=== PATIENT | female | born 1985 | race Caucasian/White ===

== ENCOUNTER 2016-08-04 23:37 | Emergency (ER) | payer OTHER ==
[~2016-08-04] VITALS: Ht 172.7 cm; Wt 88.5 kg
[~2016-08-04 23:37] MED LIST: ACETAMINOPHEN-1 EAC1 PO; ANTIVERT25 MG PO; CIPRO500 MG PO; FLAGYL500 MG PO; HYDROCODONE-AP1 EAC6 PO; IBUPROFEN 800800 M1 PO; IRON159 MG; MAGIC MOUTHWASH SWISH&SPIT; MEDROLDOSEPACK PO; NAPROSYN500 MG PO; NOHOMEMEDICATIONS; NORCO 5-325 TA1 EACH PO; PENICILLIN V P500 MG PO; PENICILLIN VK500 M1 PO; PREDNISONE 20 M20 M1 PO; PROAIR HFA8.5 GM INH; ULTRAM 50MG TAB50 MG PO; VENTOLIN HFA 1818 GM INH; ZOFRAN ODT4 MG PO; ZPAK PO
[2016-08-05 00:53] LABS: ABSOLUTE NEUTROPHILS 7.1 thou/uL (1.4-8.2); BASOPHILS 0.6 % (0.0-2.0); EOSINOPHILS 0.9 % (0.0-3.0); HEMATOCRIT 39.2 % (37.0-47.0); HEMOGLOBIN 13.3 gm/dL (12.0-15.0); LYMPHOCYTES 12.3 % (24.0-44.0); MCH 32.3 pg (26.0-34.0); MONOCYTES 11.3 % (1.0-8.0); PLATELET COUNT 182 thou/uL (150-400); POLYS 74.9 % (36.0-66.0); RBC 4.12 mil/uL (4.20-5.00); RDW 13.1 % (10.5-14.5); WBC 9.5 thou/uL (4.0-11.0)
[2016-08-05 00:58] LABS: MANUAL DIFF NO
[2016-08-05 01:04] LABS: CALCIUM 8.6 mg/dL (8.5-10.1); CREATININE 0.8 mg/dL (0.6-1.0); POTASSIUM 3.4 mmol/L (3.5-5.1)
[2016-08-05 01:07] LABS: URINE BILIRUBIN NEGATIVE (Negative); URINE BLOOD 3+ (Negative); URINE COLOR YELLOW; URINE GLUCOSE-RANDOM* NEGATIVE (Negative); URINE KETONES NEGATIVE (Negative); URINE NITRITE POSITIVE (Negative); URINE PROTEIN (DIPSTICK) 2+ (Negative); URINE SPECIFIC GRAVITY 1.025 (1.003-1.035); URINE UROBILINOGEN 0.2 E.U./dl (0.2-1.0)
[2016-08-05 01:19] LABS: CASTS None Seen /LPF (None Seen); CRYSTALS None Seen /LPF (None Seen); SQUAMOUS 0-3 Few /LPF (0-3); URINE RBC 3-10 Few /HPF (0-2); URINE WBC >25 Many /HPF (0-5)
[2016-08-05] MEDS ORDERED: NORCO 5-325 TA1 EACH PO (03:42)
[2016-08-05] MEDS ORDERED: ZOFRAN4 MG PO (03:42)
[2016-08-05] MEDS ORDERED: IBUPROFEN 600600 M1 PO (03:42)
[2016-08-05] MEDS ORDERED: BACTRIM DS TAB1 EACH PO (03:42)
[2016-08-05] MEDS ORDERED: SENOKOT-S1 TA1 PO (03:42)
== END 2016-08-05 03:44 | disposition home or self-care (01) ==
LOC: ER 23:37
PROVIDERS: Emergency Medicine; Physician Assistant
DX: N12 Tubulo-interstitial nephritis, not specified as acute or chronic (principal); F10.99 Alcohol use, unspecified with unspecified alcohol-induced disorder; Z86.2 Personal history of diseases of the blood and blood-forming organs and certain disorders involving the immune mechanism; Z88.6 Allergy status to analgesic agent; Z88.8 Allergy status to other drugs, medicaments and biological substances

== ENCOUNTER 2016-08-07 23:33 | Inpatient (IN) | payer OTHER ==
[~2016-08-07] VITALS: Ht 172.7 cm; Wt 88.0 kg
[~2016-08-07 23:33] MED LIST changes: +BACTRIM DS TAB1 EACH PO; +IBUPROFEN 600600 M1 PO; +SENOKOT-S1 TA1 PO; +ZOFRAN4 MG PO
[2016-08-07 23:35] VITALS: BP 123/79
[2016-08-08 00:41] LABS: URINE BLOOD TRACE (Negative); URINE COLOR YELLOW; URINE GLUCOSE-RANDOM* NEGATIVE (Negative); URINE KETONES TRACE (Negative); URINE LEUKOCYTES-REFLEX 1+ (Negative); URINE PROTEIN (DIPSTICK) TRACE (Negative); URINE SPECIFIC GRAVITY >= 1.030 (1.003-1.035)
[2016-08-08 00:42] LABS: ABSOLUTE NEUTROPHILS 3.6 thou/uL (1.4-8.2); BASOPHILS 0.6 % (0.0-2.0); EOSINOPHILS 4.5 % (0.0-3.0); HEMATOCRIT 35.1 % (37.0-47.0); LYMPHOCYTES 21.1 % (24.0-44.0); MCH 32.4 pg (26.0-34.0); MCHC 34.1 g/dL (28.0-37.0); MCV 95.1 fL (80.0-100.0); MONOCYTES 10.4 % (1.0-8.0); PLATELET COUNT 183 thou/uL (150-400); POLYS 63.4 % (36.0-66.0); RBC 3.69 mil/uL (4.20-5.00); RDW 12.6 % (10.5-14.5); WBC 5.7 thou/uL (4.0-11.0)
[2016-08-08 00:43] LABS: MANUAL DIFF NO
[2016-08-08 00:45] LABS: CALCIUM 8.7 mg/dL (8.5-10.1); CREATININE 0.9 mg/dL (0.6-1.0); POTASSIUM 3.4 mmol/L (3.5-5.1)
[2016-08-08 00:47] LABS: ICTOTEST (BILI CONFIRMATORY) Negative (Negative); URINE BILIRUBIN NEGATIVE (Negative)
[2016-08-08 01:03] LABS: SQUAMOUS >10 Many /LPF (0-3)
[2016-08-08 01:04] LABS: CASTS None Seen /LPF (None Seen); CRYSTALS None Seen /LPF (None Seen); URINE RBC 0-2 Rare /HPF (0-2)
[2016-08-08 02:48] VITALS: BP 117/58
[2016-08-08 03:09] VITALS: BP 127/61
[2016-08-08 06:50] VITALS: BP 99/48
[2016-08-08 14:09] VITALS: BP 93/57
[2016-08-08 19:21] VITALS: BP 116/59
[2016-08-09 03:37] LABS: HEMATOCRIT 32.2 % (37.0-47.0); MCH 32.4 pg (26.0-34.0); MCHC 34.3 g/dL (28.0-37.0); MCV 94.5 fL (80.0-100.0); RBC 3.4 mil/uL (4.20-5.00); RDW 12.7 % (10.5-14.5); WBC 4.4 thou/uL (4.0-11.0)
[2016-08-09 03:45] VITALS: BP 107/66
[2016-08-09 03:46] LABS: CALCIUM 7.9 mg/dL (8.5-10.1); CREATININE 0.8 mg/dL (0.6-1.0); POTASSIUM 3.9 mmol/L (3.5-5.1)
[2016-08-09 09:09] VITALS: BP 107/68
[2016-08-09] MEDS ORDERED: KEFLEX500 MG PO (11:49)
[2016-08-09 12:29] VITALS: BP 107/68
== END 2016-08-09 13:05 | disposition home or self-care (01) | DRG 690 ==
LOC: ER 23:33 → EROBS 08-08 02:20 → 5S 08-08 02:20
PROVIDERS: Emergency Medicine; Nurse Practitioner Family
DX: N12 Tubulo-interstitial nephritis, not specified as acute or chronic (principal); F17.210 Nicotine dependence, cigarettes, uncomplicated; Z88.6 Allergy status to analgesic agent; Z91.018 Allergy to other foods; Z88.1 Allergy status to other antibiotic agents; Z90.49 Acquired absence of other specified parts of digestive tract
CPT/HCPCS: 10086

== ENCOUNTER 2016-08-11 16:38 | Emergency (ER) | payer OTHER ==
[~2016-08-11] VITALS: Ht 172.7 cm; Wt 88.5 kg
[~2016-08-11 16:38] MED LIST changes: +KEFLEX500 MG PO
[2016-08-11 17:44] LABS: HEMATOCRIT 32.6 % (37.0-47.0); HEMOGLOBIN 11.2 gm/dL (12.0-15.0); MCHC 34.2 g/dL (28.0-37.0); MCV 93.6 fL (80.0-100.0); PLATELET COUNT 153 thou/uL (150-400); RBC 3.49 mil/uL (4.20-5.00); RDW 12.8 % (10.5-14.5); WBC 2.8 thou/uL (4.0-11.0)
[2016-08-11 17:45] LABS: URINE BILIRUBIN NEGATIVE (Negative); URINE BLOOD NEGATIVE (Negative); URINE COLOR YELLOW; URINE GLUCOSE-RANDOM* NEGATIVE (Negative); URINE KETONES NEGATIVE (Negative); URINE LEUKOCYTES-REFLEX 2+ (Negative); URINE PROTEIN (DIPSTICK) NEGATIVE (Negative); URINE SPECIFIC GRAVITY <= 1.005 (1.003-1.035); URINE UROBILINOGEN 0.2 E.U./dl (0.2-1.0)
[2016-08-11 17:45] LABS: MANUAL DIFF YES
[2016-08-11 17:50] LABS: SQUAMOUS 4-10 Moderate /LPF (0-3)
[2016-08-11 17:51] LABS: URINE RBC None Seen /HPF (0-2); URINE WBC-REFLEX 0-5 Rare /HPF (0-5)
[2016-08-11 17:52] LABS: CASTS None Seen /LPF (None Seen); CRYSTALS None Seen /LPF (None Seen)
[2016-08-11 17:52] LABS: CALCIUM 8.1 mg/dL (8.5-10.1); CREATININE 0.8 mg/dL (0.6-1.0); POTASSIUM 3.8 mmol/L (3.5-5.1)
[2016-08-11 17:57] LABS: ALBUMIN 2.8 g/dL (3.4-5.0); TOTAL BILIRUBIN 0.2 mg/dL (<0.1-1.0); TOTAL PROTEIN 6.3 g/dL (6.4-8.2)
[2016-08-11 18:19] LABS: ABSOLUTE NEUTROPHILS 1.7 thou/uL (1.4-8.2); TOTAL CELL COUNT 100
[2016-08-11] MEDS ORDERED: FLAGYL500 MG PO (19:18)
== END 2016-08-11 19:29 | disposition home or self-care (01) ==
LOC: ER 16:38
PROVIDERS: Physician Assistant
DX: R51 Headache (principal); R10.9 Unspecified abdominal pain; A59.9 Trichomoniasis, unspecified; F17.210 Nicotine dependence, cigarettes, uncomplicated; Z86.2 Personal history of diseases of the blood and blood-forming organs and certain disorders involving the immune mechanism; Z90.49 Acquired absence of other specified parts of digestive tract; Z88.6 Allergy status to analgesic agent; Z88.1 Allergy status to other antibiotic agents; Z88.8 Allergy status to other drugs, medicaments and biological substances

== ENCOUNTER 2016-11-14 16:31 | Emergency (ER) | payer OTHER ==
[~2016-11-14] VITALS: Ht 172.7 cm; Wt 86.2 kg
[2016-11-14] MEDS ORDERED: NAPROSYN500 MG PO (16:51)
== END 2016-11-14 17:14 | disposition home or self-care (01) ==
LOC: ER 16:31
DX: M94.0 Chondrocostal junction syndrome [Tietze] (principal); F17.210 Nicotine dependence, cigarettes, uncomplicated; Z88.1 Allergy status to other antibiotic agents; Z88.5 Allergy status to narcotic agent; Z88.2 Allergy status to sulfonamides; Z91.018 Allergy to other foods; Z90.49 Acquired absence of other specified parts of digestive tract

== ENCOUNTER 2016-11-25 23:28 | Emergency (ER) | payer OTHER ==
[~2016-11-25] VITALS: Ht 172.7 cm; Wt 88.5 kg
[2016-11-25] MEDS ORDERED: TESSALON PERLE100 M1 PO (23:56)
== END 2016-11-26 00:51 | disposition home or self-care (01) ==
LOC: ER 23:28
DX: J06.9 Acute upper respiratory infection, unspecified (principal); J20.9 Acute bronchitis, unspecified; Z98.890 Other specified postprocedural states; F17.210 Nicotine dependence, cigarettes, uncomplicated; Z88.1 Allergy status to other antibiotic agents; Z88.5 Allergy status to narcotic agent; Z91.048 Other nonmedicinal substance allergy status

== ENCOUNTER 2017-05-08 01:59 | Emergency (ER) | payer OTHER ==
[~2017-05-08] VITALS: Ht 172.7 cm; Wt 83.9 kg
[~2017-05-08 01:59] MED LIST changes: +TESSALON PERLE100 M1 PO
[2017-05-08 02:32] LABS: URINE BILIRUBIN NEGATIVE (Negative); URINE BLOOD NEGATIVE (Negative); URINE CLARITY CLEAR; URINE COLOR YELLOW; URINE GLUCOSE-RANDOM* NEGATIVE (Negative); URINE KETONES NEGATIVE (Negative); URINE NITRITE-REFLEX NEGATIVE (Negative); URINE PROTEIN (DIPSTICK) NEGATIVE (Negative); URINE SPECIFIC GRAVITY 1.015 (1.005-1.035)
[2017-05-08 02:34] LABS: URINE LEUKOCYTES-REFLEX TRACE (Negative)
[2017-05-08 03:08] LABS: ABSOLUTE NEUTROPHILS 3.7 thou/uL (1.4-8.2); BASOPHILS 0.7 % (0.0-2.0); EOSINOPHILS 5.6 % (0.0-3.0); HEMATOCRIT 42.1 % (37.0-47.0); HEMOGLOBIN 14.1 gm/dL (12.0-15.0); MCHC 33.5 g/dL (28.0-37.0); MCV 95.4 fL (80.0-100.0); MONOCYTES 8.5 % (1.0-8.0); PLATELET COUNT 185 thou/uL (150-400); POLYS 63.2 % (36.0-66.0); RBC 4.41 mil/uL (4.20-5.00); RDW 13.1 % (10.5-14.5); WBC 5.8 thou/uL (4.0-11.0)
[2017-05-08 03:15] LABS: CALCIUM 8.7 mg/dL (8.5-10.1); CREATININE 0.6 mg/dL (0.6-1.0)
[2017-05-08 03:21] LABS: ALBUMIN 3.4 g/dL (3.4-5.0); TOTAL BILIRUBIN 0.2 mg/dL (<0.1-1.0)
[2017-05-08] MEDS ORDERED: NORFLEX100 MG PO (03:30)
[2017-05-08] MEDS ORDERED: NAPROSYN500 MG PO (03:30)
[2017-05-08 03:58] VITALS: BP 130/78
[2017-06-18] MEDS ORDERED: PREDNISONE 20 M20 MG PO (08:20)
[2017-07-03] MEDS ORDERED: ATIVAN0.5 MG PO (02:44)
== END 2017-05-08 03:59 | disposition home or self-care (01) ==
LOC: ER 01:59
PROVIDERS: Emergency Medicine
DX: J06.9 Acute upper respiratory infection, unspecified (principal); M54.5 Low back pain; Z90.49 Acquired absence of other specified parts of digestive tract; Z86.2 Personal history of diseases of the blood and blood-forming organs and certain disorders involving the immune mechanism; Z88.1 Allergy status to other antibiotic agents; Z88.6 Allergy status to analgesic agent; Z91.02 Food additives allergy status; F17.210 Nicotine dependence, cigarettes, uncomplicated

== ENCOUNTER 2017-08-26 21:30 | Emergency (ER) | payer OTHER ==
[~2017-08-26] VITALS: Ht 175.3 cm; Wt 83.9 kg
[~2017-08-26 21:30] MED LIST changes: +ATIVAN0.5 MG PO; +NORFLEX100 MG PO; +PREDNISONE 20 M20 MG PO
[2017-08-26] MEDS ORDERED: NOHOMEMEDICATIONS (21:47)
[2017-08-26] MEDS ORDERED: PENICILLIN V P500 MG PO (22:47)
[2017-08-26] MEDS ORDERED: MORPHINE SULFAT15 M3 PO (22:47)
== END 2017-08-26 22:56 | disposition home or self-care (01) ==
LOC: ER 21:30
DX: K08.89 Other specified disorders of teeth and supporting structures (principal); H92.01 Otalgia, right ear; F17.210 Nicotine dependence, cigarettes, uncomplicated; Z90.49 Acquired absence of other specified parts of digestive tract; Z91.048 Other nonmedicinal substance allergy status; Z88.6 Allergy status to analgesic agent; Z88.2 Allergy status to sulfonamides; Z88.8 Allergy status to other drugs, medicaments and biological substances

== ENCOUNTER 2018-06-22 08:21 | Emergency (ER) | payer OTHER ==
[~2018-06-22] VITALS: Ht 175.3 cm; Wt 108.9 kg
[~2018-06-22 08:21] MED LIST changes: +MORPHINE SULFAT15 M3 PO
[2018-06-22 09:14] LABS: ABSOLUTE NEUTROPHILS 5.3 thou/uL (1.4-8.2); BASOPHILS 0.6 % (0.0-2.0); EOSINOPHILS 3.8 % (0.0-3.0); HEMATOCRIT 39.1 % (37.0-47.0); HEMOGLOBIN 13.3 gm/dL (12.0-15.0); LYMPHOCYTES 21.6 % (24.0-44.0); MCH 33.3 pg (26.0-34.0); MCV 97.9 fL (80.0-100.0); MONOCYTES 8.4 % (1.0-8.0); PLATELET COUNT 197 thou/uL (150-400); POLYS 65.6 % (36.0-66.0); RDW 12.9 % (10.5-14.5); WBC 8.1 thou/uL (4.0-11.0)
[2018-06-22 09:17] LABS: CALCIUM 9.3 mg/dL (8.5-10.1); CREATININE 0.8 mg/dL (0.6-1.0); POTASSIUM 4.1 mmol/L (3.5-5.1)
[2018-06-22] MEDS ORDERED: CELEXA10 MG PO (09:21)
[2018-06-22] MEDS ORDERED: TRAZODONE HCL50 MG PO (09:21)
[2018-06-22] MEDS ORDERED: PROPRANOLOL 1010 MG PO (09:21)
[2018-06-22 09:32] LABS: URINE BILIRUBIN NEGATIVE (Negative); URINE BLOOD NEGATIVE (Negative); URINE CLARITY CLEAR; URINE COLOR YELLOW; URINE GLUCOSE-RANDOM* NEGATIVE (Negative); URINE KETONES NEGATIVE (Negative); URINE LEUKOCYTES-REFLEX TRACE (Negative); URINE NITRITE-REFLEX NEGATIVE (Negative); URINE PROTEIN (DIPSTICK) NEGATIVE (Negative); URINE SPECIFIC GRAVITY <= 1.005 (1.005-1.035); URINE UROBILINOGEN 0.2 E.U./dl (0.2-1.0)
[2018-06-22 09:40] LABS: SQUAMOUS 0-3 Few /LPF (0-3)
[2018-06-22 09:41] LABS: BACTERIA-REFLEX 1-9 Few /HPF (None Seen); CASTS None Seen /LPF (None Seen); CRYSTALS None Seen /LPF (None Seen); URINE RBC 0-2 Rare /HPF (0-2); URINE WBC-REFLEX 0-5 Rare /HPF (0-5)
[2018-06-22] MEDS ORDERED: CLEOCIN HCL150 MG PO (09:53)
[2018-06-22] MEDS ORDERED: MOBIC15 MG PO (09:53)
[2018-06-22] MEDS ORDERED: ZOFRAN ODT4 MG PO (09:53)
[2018-06-22 10:07] VITALS: BP 111/54
== END 2018-06-22 10:07 | disposition home or self-care (01) ==
LOC: ER 08:21
PROVIDERS: Emergency Medicine
DX: K04.7 Periapical abscess without sinus (principal); R19.7 Diarrhea, unspecified; R35.0 Frequency of micturition; F17.210 Nicotine dependence, cigarettes, uncomplicated; Z90.49 Acquired absence of other specified parts of digestive tract; Z88.2 Allergy status to sulfonamides; Z88.5 Allergy status to narcotic agent; Z88.8 Allergy status to other drugs, medicaments and biological substances